=== PATIENT | female | born 1995 | race Caucasian/White ===

== ENCOUNTER 2020-02-22 18:16 | Emergency (ER) | payer OTHER ==
[~2020-02-22] VITALS: Ht 162.6 cm; Wt 79.4 kg
[2020-02-22 18:20] VITALS: BP 133/77
--- NOTE | 2020-02-22 18:28 | NUR ---
PT AMB TO BED 2.
--- NOTE | 2020-02-22 18:40 | NUR ---
PT C/O RT EAR PAIN 1 WEEK . PT AWAKE , ALERT , AFIBRILE , AMBULATORY WITH STEADY GAIT , IMPACTED SERUMEN BOTH EAR , PAIN AT 7/10. SCE, CBS BLF. DENIES PMHX.
--- NOTE | 2020-02-22 19:06 | NUR ---
Report given to dhiraj cruz. Pt awake, alert, afibrile stable vs.
--- NOTE | 2020-02-22 19:17 | NUR ---
Dr. Haywood examining patient.
--- NOTE | 2020-02-22 19:30 | NUR ---
pt [id number] sitting up in [facility], denies pain @ this time. no acute distress. will continue to observe.
--- NOTE | 2020-02-22 20:10 | NUR ---
LAVANGE PROCEDURE PERFORMED, APPROXIMATELY 500 CC USED OF MIXTURE WATER AND HYDROGEN PEROXIDE. PT REPORTED NO RELIEF OF PAIN AND NO RELIEF OF DIZZINESS.
[2020-02-22 20:28] VITALS: BP 135/81
--- NOTE | 2020-02-22 20:28 | NUR ---
Patient discharged with v/s stable. Written and verbal after care instructions given and explained. Patient alert, oriented and verbalized understanding of instructions. Ambulatory with steady gait. All questions addressed prior to discharge. ID band removed. Patient advised to follow up with PMD. Rx of DEBROX given. Patient educated on indication of medication including possible reaction and side effects. Opportunity to ask questions provided and answered.
== END 2020-02-22 20:28 | disposition home or self-care (01) ==
LOC: MED 18:16
DX: H92.01 Otalgia, right ear (principal); H61.21 Impacted cerumen, right ear
CPT/HCPCS: 99282